=== PATIENT | female | born 1970 | race Caucasian/White ===

== ENCOUNTER 2018-08-25 09:50 | Inpatient (IN) | payer MEDICAID ==
[2018-08-25] MEDS: SOD CHLORIDE 0.9% 1,000 ML IV ×2 (10:14→15:23)
[2018-08-25 10:18] LABS: ADD MAN DIFF? NO
[2018-08-25] MEDS: KETOROLAC 30 MG INJ IV (10:18)
[2018-08-25 10:20] LABS: BASOPHIL # 0.1 10^3/ul (0.0-0.1); BASOPHILS % 0.6 % (0.0-2.0); EOSINOPHILS # 0.1 10^3/ul (0.0-0.5); EOSINOPHILS % 0.9 % (0.0-7.0); HEMOGLOBIN 11.7 g/dl (12.0-16.0); LYMPHOCYTES # 1.3 10^3/ul (0.8-2.9); LYMPHOCYTES % 10.4 % (15.0-51.0); MEAN CORPUSCULAR HEMOGLOBIN 26.8 pg (29.0-33.0); MEAN CORPUSCULAR HGB CONC 31.6 g/dl (32.0-37.0); MEAN CORPUSCULAR VOLUME 84.9 fl (82.0-101.0); MEAN PLATELET VOLUME 10.5 fl (7.4-10.4); MONOCYTES % 7.7 % (0.0-11.0); NEUTROPHIL # 10.1 10^3/ul (1.6-7.5); PLATELET COUNT 354 10^3/UL (140-415); RED BLOOD COUNT 4.36 10^6/ul (4.20-5.40); RED CELL DISTRIBUTION WIDTH 14.3 % (11.5-14.5)
[2018-08-25 10:20] LABS: WHITE BLOOD COUNT 12.6 10^3/ul (4.8-10.8)
[2018-08-25 10:30] LABS: ADD UMIC YES; UR ASCORBIC ACID NEGATIVE (NEGATIVE); UR BACTERIA FEW /HPF (NONE SEEN); UR BILIRUBIN (Dip) NEGATIVE (NEGATIVE); UR BLOOD (Dip) 3+ mg/dL (NEGATIVE); UR CLARITY CLOUDY (CLEAR); UR COLOR AMBER (YELLOW); UR GLUCOSE (Dip) NEGATIVE (NEGATIVE); UR KETONES (Dip) NEGATIVE (NEGATIVE); UR LEUKOCYTE ESTERASE (Dip) 3+ Leu/ul (NEGATIVE); UR MUCUS FEW /HPF (NONE SEEN); UR NITRITE (Dip) POSITIVE (NEGATIVE); UR RBC > 182 /HPF (0-5); UR SPECIFIC GRAVITY (Dip) 1.014 (1.003-1.030); UR SQUAMOUS EPITHELIAL CELL FEW /HPF (FEW); UR TOTAL PROTEIN (Dip) 2+ mg/dl (NEGATIVE); UR UROBILINOGEN (Dip) NEGATIVE (NEGATIVE); UR WBC > 182 /HPF (0-5)
[2018-08-25 10:55] LABS: ALANINE AMINOTRANSFERASE 40 IU/L (13-69); ALBUMIN 4.5 g/dl (3.3-4.9); ALBUMIN/GLOBULIN RATIO 1.36; ALKALINE PHOSPHATASE 74 IU/L (42-121); ANION GAP 11 (5-13); ASPARTATE AMINO TRANSFERASE 32 IU/L (15-46); BILIRUBIN,INDIRECT 0.5 mg/dl (0-1.1); BILIRUBIN,TOTAL 0.5 mg/dl (0.2-1.3); BLOOD UREA NITROGEN 8 mg/dl (7-20); CALCIUM 9.2 mg/dl (8.4-10.2); CARBON DIOXIDE 26 mmol/L (21-31); CHLORIDE 102 mmol/L (97-110); CREATININE 0.66 mg/dl (0.44-1.00); Estimated GFR > 60 mL/min (>60); GLUCOSE 142 mg/dl (70-220); LIPASE 92 U/L (23-300); POTASSIUM 3.9 mmol/L (3.5-5.1); SODIUM 139 mmol/L (135-144); TOTAL PROTEIN 7.8 g/dl (6.1-8.1)
[2018-08-25] MEDS: ONDANSETRON 4 MG INJ IV ×2 (11:58→13:18)
[2018-08-25] MEDS: morphine 4 MG/ML VIAL IV (11:59)
[2018-08-25] MEDS: HYDROmorphONE 1 MG/ML SYG IV (13:18)
[2018-08-25] MEDS: CEFTRIAXONE 1 GM/50 ML (PMX) 50 ML IVPB (13:18)
[2018-08-25] MEDS ORDERED: ONDANSETRON 4 MG INJ IV (13:30)
[2018-08-25] MEDS ORDERED: ACETAMINOPHEN 325 MG TAB PO (13:30)
[2018-08-25] MEDS ORDERED: NACL 0.9% 3 ML SYG IV (15:00)
[2018-08-25 15:08] LABS: IRON 57 ug/dl (35-150)
[2018-08-25 15:18] LABS: % IRON SATURATION 13 % SAT (22-52); TOTAL IRON BINDING CAPACITY 435 ug/dl (241-421)
[2018-08-25] MEDS: HYDROmorphONE 0.5 MG/0.5 ML SYG IV ×2 (17:12→21:49)
[2018-08-26] MEDS: HYDROmorphONE 0.5 MG/0.5 ML SYG IV ×2 (01:50→21:09)
[2018-08-26] MEDS: SOD CHLORIDE 0.9% 1,000 ML IV ×3 (04:33→17:37)
[2018-08-26 05:42] LABS: ADD MAN DIFF? NO
[2018-08-26 05:53] LABS: WHITE BLOOD COUNT 8.9 10^3/ul (4.8-10.8)
[2018-08-26 05:53] LABS: BASOPHIL # 0.1 10^3/ul (0.0-0.1); BASOPHILS % 0.7 % (0.0-2.0); EOSINOPHILS # 0.2 10^3/ul (0.0-0.5); EOSINOPHILS % 1.7 % (0.0-7.0); HEMATOCRIT 31.5 % (37.0-47.0); HEMOGLOBIN 9.9 g/dl (12.0-16.0); LYMPHOCYTES # 1.6 10^3/ul (0.8-2.9); LYMPHOCYTES % 17.8 % (15.0-51.0); MEAN CORPUSCULAR HEMOGLOBIN 27.2 pg (29.0-33.0); MEAN CORPUSCULAR HGB CONC 31.4 g/dl (32.0-37.0); MEAN CORPUSCULAR VOLUME 86.5 fl (82.0-101.0); MEAN PLATELET VOLUME 10.6 fl (7.4-10.4); MONOCYTE # 1.1 10^3/ul (0.3-0.9); MONOCYTES % 11.8 % (0.0-11.0); NEUTROPHILS % 67.7 % (39.0-77.0); PLATELET COUNT 290 10^3/UL (140-415); RED BLOOD COUNT 3.64 10^6/ul (4.20-5.40); RED CELL DISTRIBUTION WIDTH 14.3 % (11.5-14.5)
[2018-08-26] MEDS: PANTOPRAZOLE 40 MG INJ IV (06:03)
[2018-08-26] MEDS: HYDROCODONE/APAP (5/325) TAB PO ×3 (06:03→20:07)
[2018-08-26 06:33] LABS: ALANINE AMINOTRANSFERASE 31 IU/L (13-69); ALBUMIN 3.5 g/dl (3.3-4.9); ALBUMIN/GLOBULIN RATIO 1.25; ALKALINE PHOSPHATASE 58 IU/L (42-121); ANION GAP 6 (5-13); ASPARTATE AMINO TRANSFERASE 20 IU/L (15-46); BILIRUBIN,INDIRECT 0.5 mg/dl (0-1.1); BILIRUBIN,TOTAL 0.5 mg/dl (0.2-1.3); BLOOD UREA NITROGEN 8 mg/dl (7-20); CALCIUM 8.5 mg/dl (8.4-10.2); CARBON DIOXIDE 28 mmol/L (21-31); CHLORIDE 105 mmol/L (97-110); CHOLESTEROL 182 mg/dl (100-200); CREATININE 0.66 mg/dl (0.44-1.00); Estimated GFR > 60 mL/min (>60); GLUCOSE 100 mg/dl (70-220); HDL CHOLESTEROL 26 mg/dl (34-88); LDL CHOLESTEROL,CALCULATED 98 mg/dl; MAGNESIUM 1.8 mg/dl (1.7-2.5); PHOSPHORUS 3.5 mg/dl (2.5-4.9); POTASSIUM 4.2 mmol/L (3.5-5.1); SODIUM 139 mmol/L (135-144); TOTAL PROTEIN 6.3 g/dl (6.1-8.1); TRIGLYCERIDES 288 mg/dl (0-149)
[2018-08-26 10:12] LABS: HEMOGLOBIN A1C 5.9 % (0-5.9)
[2018-08-26] MEDS: CEFTRIAXONE 1 GM/50 ML (PMX) 50 ML IVPB (12:08)
[2018-08-26] MEDS: SOD FERRIC GLUC COMPLX 125 MG in SOD CHLORIDE 0.9% 100 ML IVPB (17:38)
[2018-08-26] MEDS: TAMSULOSIN (SR) 0.4 MG CAP PO (20:07)
[2018-08-26] MEDS: ONDANSETRON 4 MG INJ IV (21:08)
[2018-08-27] MEDS: PANTOPRAZOLE 40 MG INJ IV (05:08)
[2018-08-27] MEDS: SOD CHLORIDE 0.9% 1,000 ML IV (05:09)
[2018-08-27] MEDS: HYDROCODONE/APAP (5/325) TAB PO (08:13)
[2018-08-27] MEDS: CEFTRIAXONE 1 GM/50 ML (PMX) 50 ML IVPB (12:59)
[2018-08-27] MEDS: FLUCONAZOLE 150 MG TAB PO (13:00)
== END 2018-08-27 15:35 | disposition home or self-care (01) | DRG 690 ==
LOC: E/R 09:50 → PP2 13:16
DX: N13.6 Pyonephrosis (principal); D50.9 Iron deficiency anemia, unspecified; N20.0 Calculus of kidney
CPT/HCPCS: 36415; 74018; 74176; 80053; 80061; 81001; 82728; 83036; 83540; 83690; 83735; 84100; 84703; 85025; 87086; 96374; 96375; 99285-25